=== PATIENT | male | born 1960 | race Two or more races ===

== ENCOUNTER 2024-12-09 07:40 | Day surgery (SDC) | payer MEDICAID, SELFPAY ==
--- NOTE | 2024-12-08 07:00 | EKG_ITS ---
[facility] Test Date: 2024-12-08 Pat Name: SIVAN MORTON Department: Room: - Gender: Male [employer]: DAGMAR : 1960 Requested By: Arun Metz Order Number: [id number] Reading MD: Arun Metz Measurements Intervals [place] Rate: 63 P: -37 HI: 202 QRS: -30 QRSD: 108 T: 32 QT: 398 QTc: 410 Interpretive Statements SINUS RHYTHM LOW QRS VOLTAGE IN PRECORDIAL LEADS [QRS DEFLECTION < 1.0 mV IN CHEST LEADS] POSSIBLE LEFT VENTRICULAR HYPERTROPHY [VOLTAGE CRITERIA PLUS LAE OR QRS WIDENING] POSSIBLE ANTERIOR MYOCARDIAL INFARCTION , OF INDETERMINATE AGE [30 ms Q WAVE IN V3/V4, OR R < 0.2 mV IN V4] No previous ECG available for comparison /[id number]/S0/[id number].pdf
[2024-12-08 09:16] VITALS: BMI 33.8
[2024-12-08 09:55] LABS: Collection Type, Urine Clean Catch
[2024-12-08 10:31] LABS: Basophils # (Auto) 0.1 Thou/mm3 (0.0-0.2); Basophils % (Auto) 1 % (0-2.5); Eosinophils # (Auto) 0.2 Thou/mm3 (0.0-0.5); Eosinophils % (Auto) 2 % (0-10); Hematocrit 43.6 % (41.0-53.0); Hemoglobin 14.5 g/dL (13.5-16.0); Immature Granulocytes Auto 0.02 Thou/mm3 (0.00-0.00); Lymphocytes # (Auto) 2.4 Thou/mm3 (1.0-4.8); Lymphocytes % (Auto) 24 % (10-50); Mean Corpuscular HGB Conc 33.3 g/dl (31.0-37.0); Mean Corpuscular Hemoglobin 29.1 pg (25.0-35.0); Mean Corpuscular Volume 88 fL (80-100); Monocytes # (Auto) 0.8 Thou/mm3 (0.0-0.8); Monocytes % (Auto) 8 % (0-12); Neutrophils # (Auto) 6.4 Thou/mm3 (1.8-7.7); Neutrophils % (Auto) 65 % (37-80); Nucleated Red Blood Cell # 0.00 Thou/mm3 (0.00-0.00); Nucleated Red Blood Cell % 0 /100 WBC (0); Platelet Count 310 Thou/mm3 (140-440); RDW Standard Deviation 41.1 fL (35.1-43.9); Red Blood Count 4.98 Miln/mm3 (4.50-5.90); White Blood Count 9.8 Thou/mm3 (3.8-10.6)
[2024-12-08 10:37] LABS: Prostate Specific Antigen 2.92 ng/mL (0-4.00)
[2024-12-08 10:40] LABS: INR 1.0 (0.9-1.3); Partial Thromboplastin Time 27.0 Seconds (22.0-36.0); Prothrombin Time 10.9 Seconds (9.0-12.2)
[2024-12-08 10:44] LABS: Alanine Aminotransferase 19 U/L (10-49); Albumin, Serum 4.5 gm/dL (3.4-4.8); Albumin/Globulin Ratio 1.6 (1.2-2.2); Alkaline Phosphatase 106 U/L (46-116); Anion Gap 12 (7-16); Aspartate Amino Transferase 13 U/L (0-34); BUN/Creatinine Ratio 18 Ratio (12-20); Bilirubin,Total 0.5 mg/dL (0.3-1.2); Blood Urea Nitrogen 14 mg/dL (9-23); Calcium 9.7 mg/dL (8.3-10.6); Calcium (Corrected) 9.7 mg/dL (8.5-10.1); Carbon Dioxide 25.8 mMol/L (20.0-31.0); Chloride 104 mMol/L (98-107); Creatinine (Component) 0.8 mg/dL (0.6-1.3); Estimated Creatinine Clearance 100.7 mL/min (>60); Globulin 2.8 gm/dL (2.3-3.5); Glucose 105 mg/dL (74-106); Osmolality,Calculated 283 (275-295); Potassium 4.0 mMol/L (3.4-5.1); Sodium 142 mMol/L (136-145); Total Protein 7.3 gm/dL (5.7-8.2); eGFR > 60 See Note
[2024-12-08 10:49] LABS: Bilirubin,Urine Negative (Negative); Blood,Urine Negative (Negative); Color,Urine Yellow (Lt Yel-Yel); Glucose, Urine Negative (Negative); Ketones,Urine Negative (Negative); Leukocyte Esterase,Urine Positive (Negative); Nitrite,Urine Negative (Negative); PH,Urine 5.5 (5.0-7.0); Protein,Urine Trace (Neg - Trace); RBC,Urine 11 /hpf (0-3); Specific Gravity,Urine 1.028 (1.001-1.035); Squamous Epithelial Cell,Urine 2 /hpf (0-5); Urobilinogen,Urine Negative mg/dL (0.0-1.0); WBC,Urine 34 /hpf (0-5)
[2024-12-08 11:08] LABS: Clarity,Urine Hazy (Clear/Hazy)
--- NOTE | 2024-12-08 13:33 | ESHP_ITS ---
RE: SIVAN MORTON : 1960 DATE OF ADMISSION: 12/08/2024 HISTORY OF PRESENT ILLNESS: A 64-year-old gentleman who was referred to me with a history of left-sided hydrocele. He has a swollen scrotum for seven years. Nocturia x3-4. Urine is slow. PAST SURGICAL HISTORY: None. PAST MEDICAL HISTORY: He has a history of cerebrovascular accident in 11/2023. He has a history of hypertension and history of diabetes mellitus. SOCIAL HISTORY: He has seven kids. ALLERGIES: NONE KNOWN. HOME MEDICATIONS: He takes: 1. Metformin. 2. Lipitor. 3. Norvasc. 4. Statin medications. 5. Insulin. 6. Aspirin. PHYSICAL EXAMINATION: HEENT: Normal. NECK: Supple. LUNGS: Clear. CARDIOVASCULAR: Heart sounds are normal. ABDOMEN: Soft without any organomegaly. No guarding. No rigidity. GENITOURINARY: Phallus is normal. There is a large left scrotal hydrocele 8 inches in size. Right testis is normal in the scrotum. IMPRESSION: Large left scrotal hydrocele. PLAN: Left hydrocelectomy. Planned procedure risks and complications have been discussed with the patient. The patient has understood them and agreed to proceed. DT: 12:02:27 TT: 12:41:00 Ref: [id number] - TID: [id number]
[2024-12-09] VITALS (9 sets, daily range): BP systolic 100–152; BP diastolic 66–87; PULSE 65–86; RESP 13–20; TEMP 36.2–36.9; O2SAT 95–97; BMI 33.4
--- NOTE | 2024-12-09 09:15 | CHAP ---
Visited with patient and had prayer for his upcoming procedure.
--- NOTE | 2024-12-09 10:45 | SUR.PHASEI ---
pt received from OR in recovery bay 7. pt asleep but responds to voice, breathing unlabored on nc 4l. v/s stable. pt dressing to scrotal area cdi, casey drain in place. report received from James BOLDEN and Eber MANRIQUEZ.
--- NOTE | 2024-12-09 11:34 | SUR.PHASEII ---
pt able to tolerate oral fluids without difficulty swallowing or nausea/vomiting.
--- NOTE | 2024-12-09 11:53 | ESOP_ITS ---
RE: SIVAN MORTON : 1960 DATE OF OPERATION: 12/09/2024 PREOPERATIVE DIAGNOSIS: Large left scrotal hydrocele. POSTOPERATIVE DIAGNOSES: Large left scrotal hydrocele with prominent appendix of the left testis. PROCEDURE PERFORMED: Left hydrocelectomy and excision and fulguration of the appendix of the left testis. ANESTHESIA: General by Dr. Rod. INDICATION: The patient is a 64-year-old gentleman with large left scrotal hydrocele, which is about 7 inches in size. The patient has been having a lot of trouble with this large left scrotal hydrocele. He requested correction for his problem. Left hydrocelectomy was planned. Planned procedure, risks, and complications have been discussed with the patient. The patient understood them and agreed to proceed. DESCRIPTION OF PROCEDURE: After the patient was brought to the operating table under adequate general anesthesia and supine position, parts were prepped and draped in the usual fashion. Left scrotal vertical incision was then made approximately 6 cm long. Skin and subcutaneous tissues were incised. Hemostasis was obtained. Tunica vaginal sac was exposed and was dissected all from the surrounding structures. The hydrocele sac was then opened and a large amount of the hydrocele clear yellow fluid was recovered, which was about 300 mL of hydrocele fluid. Partial excision of the hydrocele sac was then done and eversion of the sac was done behind the spermatic cord structures with continuous sutures of 2-0 chromic catgut. The patient had a prominent appendix of the left testis, which was excised and fulgurated. A testis was put back into the hemiscrotum. Jeffrey Ambrosio drain was inserted into the left hemiscrotum from the separate incision. This is a 19-[place]wegian round Jeffrey Ambrosio drain. Scrotal wound was then closed with continuous sutures for the tunica dartos and the continuous sutures of the skin. A drain was secured at the site of the skin with an 0 silk suture and was connected to a suction reservoir. Local anesthetic was injected at the site of the skin. Sterile dressing was then applied. The patient was then transferred to the recovery room in a satisfactory condition having tolerated the entire procedure well. Sponge count and needle count at the end of the procedure was found to be correct. Estimated blood loss was approximately 10 mL. DT: 10:58:52 TT: 11:51:00 Ref: [id number] - TID: [id number]
--- NOTE | 2024-12-09 12:15 | SUR.PHASEII ---
pt awake and alert, breathing unlabored on room air. v/s stable. pt dressing to scrotal area cdi. casey drain in place. pt able to ambulate to wheelchair with steady gait. d/c instructions given with daughter Karoline in room, all questions answered. pt d/c via wheelchair with all belongings.
== END 2024-12-09 12:15 | disposition home or self-care (01) ==
PROVIDERS: Anesthesiology; PCP Family Medicine; Referring Provider Surgery; Visit Provider Surgery
PROC: (CPT 55040; principal; 2024-12-09 09:45)
DX: N43.3 Hydrocele, unspecified (principal); Q55.29 Other congenital malformations of testis and scrotum; Z01.810 Encounter for preprocedural cardiovascular examination; R35.1 Nocturia; Z86.73 Personal history of transient ischemic attack (TIA), and cerebral infarction without residual deficits; I10 Essential (primary) hypertension; E11.9 Type 2 diabetes mellitus without complications
CPT/HCPCS: 55040; 54512; 36415; 80053; 81001; 84153; 85025; 85610; 85730; 93005; A4217; A4649; J0131; J0690; J1100; J2704; J2765; J3010; J3490; L8330; A9270; J0665